=== PATIENT | male | born 1940 | race African-American/Black ===

== ENCOUNTER 2024-05-01 23:44 | Inpatient (IN) | payer MEDICARE ==
[~2024-05-01] VITALS: Ht 188 cm; Wt 83.0 kg
[2024-05-02] MEDS: MAG HYDROX/AL HYDROX/SIMETH 30 ML LIQUID UDC PO ONE (00:30)
[2024-05-02] MEDS: HYDROMORPHONE 1 MG/1 ML DISP.SYRIN IV ONE ×3 (00:30→04:47)
[2024-05-02] MEDS: NITROGLYCERIN OINT 1 GM PACKET TP ONE (00:30)
[2024-05-02] MEDS: ONDANSETRON 4 MG/2 ML VIAL IV ONE (00:30)
[2024-05-02] MEDS: DICYCLOMINE HCL LIQ 10 MG/5 ML UDC PO ONE (00:30)
[2024-05-02] MEDS: LIDOCAINE VISCUS 2% 15 ML UDC MM ONE (00:30)
[2024-05-02] MEDS: PANTOPRAZOLE SODIUM 40 MG VIAL IV ONE (00:30)
[2024-05-02] MEDS ORDERED: ONDANSETRON 4 MG/2 ML VIAL ONE (00:45)
[2024-05-02] MEDS ORDERED: PANTOPRAZOLE SODIUM 40 MG VIAL ONE (00:46)
[2024-05-02] MEDS ORDERED: HYDROMORPHONE 1 MG/1 ML DISP.SYRIN ONE ×3 (00:47→04:46)
[2024-05-02] MEDS ORDERED: DICYCLOMINE HCL LIQ 10 MG/5 ML UDC ONE (00:50)
[2024-05-02] MEDS ORDERED: LIDOCAINE VISCUS 2% 15 ML UDC ONE (00:50)
[2024-05-02] MEDS ORDERED: NITROGLYCERIN OINT 1 GM PACKET TP ONE (00:51)
[2024-05-02] MEDS ORDERED: MAG HYDROX/AL HYDROX/SIMETH 30 ML LIQUID UDC ONE (00:51)
[2024-05-02 00:56] LABS: BASOPHILS % (AUTO) 0.3 % (0.0-2.0); EOSINOPHILS % (AUTO) 0.4 % (0.0-7.0); HEMATOCRIT 39.4 % (36.7-47.1); HEMOGLOBIN 13.2 g/dL (12.5-16.3); LYMPHOCYTES # (AUTO) 0.5 K/uL (0.8-4.8); LYMPHOCYTES % (AUTO) 6.2 % (20.5-51.5); MEAN CORPUSCULAR HEMOGLOBIN 27.9 uug (23.8-33.4); MEAN CORPUSCULAR HGB CONC 33 g/dL (32.5-36.3); MEAN CORPUSCULAR VOLUME 83.5 fL (73.0-96.2); MONOCYTES # (AUTO) 0.7 K/uL (0.1-1.30); MONOCYTES % (AUTO) 8.2 % (0.0-11.0); NEUTROPHILS # (AUTO) 7.1 K/uL (1.8-8.9); NEUTROPHILS % (AUTO) 84.9 % (38.5-71.5); PLATELET COUNT (AUTO) 174 K/uL (152-348); RED BLOOD CELL COUNT(AUTO) 4.72 MIL/uL (4.06-5.63); RED CELL DISTRIBUTION WIDTH 14.2 % (12.1-16.2); WHITE BLOOD COUNT (AUTO) 8.3 K/uL (3.6-10.2)
[2024-05-02 01:06] LABS: DIFFERENTIAL COMMENT 1
[2024-05-02 01:21] LABS: ALANINE AMINOTRANSFERASE 31 U/L (16-63); ALBUMIN 3.1 g/dL (3.4-5.0); ALKALINE PHOSPHATASE 78 U/L (50-136); ASPARTATE AMINOTRANSFERASE 41 U/L (15-37); BILIRUBIN,DIRECT 0.1 mg/dL (0.0-0.2); BILIRUBIN,TOTAL 0.8 mg/dL (0.2-1.0); CALCIUM 8.5 mg/dL (8.5-10.1); CARBON DIOXIDE 23 mmol/L (21-32); CHLORIDE 103 mmol/L (98-107); CREATININE 1.7 mg/dL (0.6-1.3); GLUCOSE 129 mg/dL (74-106); LIPASE 113 U/L (16-77); POTASSIUM 5.6 mmol/L (3.5-5.1); SODIUM SERUM 139 mmol/L (136-145); TOTAL PROTEIN, SERUM 7.6 g/dL (6.4-8.2); UREA NITROGEN, BLOOD 34 mg/dL (7-18)
[2024-05-02] MEDS ORDERED: IOHEXOL 350 100 ML INFUS..BTL ONE (02:20)
[2024-05-02] MEDS ORDERED: SWABABLE VALVE TRANSFER SET EA MC ONE (02:20)
[2024-05-02] MEDS ORDERED: IV NORMAL SALINE 250 ML IV ONE (02:20)
[2024-05-02] MEDS ORDERED: MAGNESIUM HYDROXIDE 30 ML LIQUID UDC PO PRN (04:15)
[2024-05-02] MEDS ORDERED: ACETAMINOPHEN 325 MG TABLET PO PRN (04:15)
[2024-05-02] MEDS ORDERED: SODIUM ZIRCONIUM CYCLOSILICATE 10 GM POWD.PACK PO ONE (04:15)
[2024-05-02] MEDS ORDERED: ONDANSETRON 4 MG/2 ML VIAL IV PRN (04:15)
[2024-05-02] MEDS ORDERED: HEPARIN SODIUM,PORCINE 5,000 UNITS/ML VIAL ONE (04:22)
[2024-05-02] MEDS: HEPARIN SODIUM,PORCINE 5,000 UNITS/ML VIAL IV ONE ×2 (04:30)
[2024-05-02] MEDS ORDERED: HEPARIN/D5W DRIP 500 ML ONE (04:40)
[2024-05-02] MEDS: HEPARIN/D5W 25000 UNITS/500 ML BAG IV ONE (05:00)
[2024-05-02 06:11] LABS: BASOPHILS % (AUTO) 0.2 % (0.0-2.0); EOSINOPHILS % (AUTO) 0.3 % (0.0-7.0); HEMATOCRIT 33.6 % (36.7-47.1); HEMOGLOBIN 11.8 g/dL (12.5-16.3); LYMPHOCYTES # (AUTO) 0.5 K/uL (0.8-4.8); LYMPHOCYTES % (AUTO) 7.8 % (20.5-51.5); MEAN CORPUSCULAR HEMOGLOBIN 28.9 uug (23.8-33.4); MEAN CORPUSCULAR HGB CONC 35 g/dL (32.5-36.3); MEAN CORPUSCULAR VOLUME 82.5 fL (73.0-96.2); MONOCYTES # (AUTO) 0.8 K/uL (0.1-1.30); MONOCYTES % (AUTO) 11.1 % (0.0-11.0); NEUTROPHILS # (AUTO) 5.5 K/uL (1.8-8.9); NEUTROPHILS % (AUTO) 80.6 % (38.5-71.5); PLATELET COUNT (AUTO) 179 K/uL (152-348); RED BLOOD CELL COUNT(AUTO) 4.08 MIL/uL (4.06-5.63); RED CELL DISTRIBUTION WIDTH 14.3 % (12.1-16.2); WHITE BLOOD COUNT (AUTO) 6.9 K/uL (3.6-10.2)
[2024-05-02 06:17] LABS: DIFFERENTIAL COMMENT 1
[2024-05-02 06:35] LABS: CALCIUM 8.3 mg/dL (8.5-10.1); CARBON DIOXIDE 26 mmol/L (21-32); CHLORIDE 106 mmol/L (98-107); CREATININE 1.6 mg/dL (0.6-1.3); GLUCOSE 127 mg/dL (74-106); PHOSPHOROUS 4.1 mg/dL (2.5-4.9); POTASSIUM 4.6 mmol/L (3.5-5.1); SODIUM SERUM 140 mmol/L (136-145); UREA NITROGEN, BLOOD 34 mg/dL (7-18)
[2024-05-02] MEDS ORDERED: PANTOPRAZOLE SODIUM 40 MG VIAL IV SCH (09:00)
[2024-05-02] MEDS ORDERED: MORPHINE SULFATE 2 MG/1 ML DISP.SYRIN ONE (10:08)
[2024-05-02] MEDS: MORPHINE SULFATE 2 MG/1 ML DISP.SYRIN IVP ONE (10:12)
[2024-05-02] MEDS ORDERED: MORPHINE SULFATE 2 MG/1 ML DISP.SYRIN IVP PRN (11:00)
[2024-05-02 12:00] VITALS: BP 126/69; TEMP 96.8
[2024-05-02] MEDS ORDERED: ZOLP10TA2 PO (12:12)
[2024-05-02] MEDS ORDERED: ASPI81TA31 PO (12:12)
[2024-05-02] MEDS ORDERED: ALBU18HF2 IH (12:12)
[2024-05-02] MEDS ORDERED: CYCL10TA9 PO (12:12)
[2024-05-02] MEDS ORDERED: CHOL-35 PO (12:12)
[2024-05-02] MEDS ORDERED: ATOR10TA PO (12:12)
[2024-05-02] MEDS ORDERED: MELO-107 PO (12:12)
[2024-05-02] MEDS ORDERED: METH4TAB3 PO (12:12)
[2024-05-02] MEDS ORDERED: PANT40TA2 PO (12:12)
[2024-05-02 15:02] VITALS: BP 131/71; TEMP 98; O2SAT 94
[2024-05-02 19:05] VITALS: BP 131/69; TEMP 98.2; O2SAT 96
[2024-05-03] VITALS (10 sets, daily range): BP systolic 123–151; BP diastolic 72–81; TEMP 97.9–98.9; O2SAT 94–100
[2024-05-03] MEDS ORDERED: ALBUTEROL SULFATE 8 GM HFA.AER.AD IH PRN (08:45)
[2024-05-03] MEDS ORDERED: Medication Not On Formulary EA (Zolpidem Tartrate (Ambien) 10 MG) PO PRN (08:45)
[2024-05-03] MEDS ORDERED: PANTOPRAZOLE SODIUM 40 MG VIAL IV SCH (09:00)
[2024-05-03] MEDS: PANTOPRAZOLE SODIUM 40 MG TABLET.DR PO SCH (09:24)
[2024-05-03] MEDS: CHOLECALCIFEROL 1,000 UNIT TABLET PO SCH (09:24)
[2024-05-03] MEDS: CYCLOBENZAPRINE HCL 10 MG TABLET PO SCH (09:40)
[2024-05-03] MEDS: ASPIRIN 81 MG TAB.CHEW PO SCH (09:40)
[2024-05-03] MEDS ORDERED: APIXABAN 2.5 MG TABLET PO SCH (10:00)
[2024-05-03] MEDS: APIXABAN 5 MG TABLET PO SCH (10:43)
[2024-05-03] MEDS: ALBUTEROL SULFATE 2.5 MG/3 ML NEBU NEB PRN (14:50)
[2024-05-03 17:24] LABS: *BILIRUBIN,URIN NEGATIVE (NEGATIVE); *BLOOD, URINE 1+ (NEGATIVE); *CLARITY,URINE CLEAR (CLEAR); *COLOR,URINE YELLOW (YELLOW); *KETONES,URINE NEGATIVE (NEGATIVE); *PROTEIN,URINE 1+ (NEGATIVE); LEUKOCYTE ESTERASE ,URINE NEGATIVE (NEGATIVE); NITRITE, URINE NEGATIVE (NEGATIVE); PH,URINE 6.5 (5.0-8.0); UGLUCOSE NEGATIVE (NEGATIVE)
[2024-05-03 17:31] LABS: *CREATININE,URINE 92.6 mg/dL (30-125); *URINE TOTAL PROTEIN RANDOM 38.6 mg/dL (<150/24HR)
[2024-05-03] MEDS: GUAIFENESIN/DEXTROMETHORPHAN 5 ML UDC PO PRN (17:38)
[2024-05-03] MEDS: ATORVASTATIN 10 MG TABLET PO SCH (20:18)
[2024-05-03 20:58] LABS: BACTERIA,URINE FEW /HPF (NONE SEEN); SQUAMOUS EPITHELIAL CELL,UR FEW /HPF (NONE SEEN); WBC,URINE 0-3 /HPF (0-3)
[2024-05-03] MEDS: ZOLPIDEM 5 MG TABLET PO PRN (22:09)
[2024-05-04] VITALS: BP 135/67; TEMP 99.3; O2SAT 94
[2024-05-04 04:00] VITALS: BP 133/73; TEMP 98.8; O2SAT 96
[2024-05-04 06:59] LABS: BASOPHILS % (AUTO) 0.3 % (0.0-2.0); EOSINOPHILS % (AUTO) 0.6 % (0.0-7.0); HEMATOCRIT 34.9 % (36.7-47.1); LYMPHOCYTES # (AUTO) 0.9 K/uL (0.8-4.8); MEAN CORPUSCULAR HEMOGLOBIN 28.3 uug (23.8-33.4); MEAN CORPUSCULAR HGB CONC 35 g/dL (32.5-36.3); MEAN CORPUSCULAR VOLUME 81.9 fL (73.0-96.2); MONOCYTES # (AUTO) 0.6 K/uL (0.1-1.30); MONOCYTES % (AUTO) 13.6 % (0.0-11.0); NEUTROPHILS # (AUTO) 2.6 K/uL (1.8-8.9); NEUTROPHILS % (AUTO) 63.5 % (38.5-71.5); PLATELET COUNT (AUTO) 170 K/uL (152-348); RED BLOOD CELL COUNT(AUTO) 4.25 MIL/uL (4.06-5.63); RED CELL DISTRIBUTION WIDTH 13.7 % (12.1-16.2); WHITE BLOOD COUNT (AUTO) 4.2 K/uL (3.6-10.2)
[2024-05-04] MEDS ORDERED: PANTOPRAZOLE SODIUM 40 MG TABLET.DR PO SCH (07:00)
[2024-05-04 07:13] LABS: DIFFERENTIAL COMMENT 1
[2024-05-04 07:26] LABS: ALANINE AMINOTRANSFERASE 23 U/L (16-63); ALBUMIN 2.7 g/dL (3.4-5.0); ALKALINE PHOSPHATASE 79 U/L (50-136); ASPARTATE AMINOTRANSFERASE 13 U/L (15-37); BILIRUBIN,TOTAL 0.8 mg/dL (0.2-1.0); CALCIUM 8.4 mg/dL (8.5-10.1); CARBON DIOXIDE 24 mmol/L (21-32); CHLORIDE 99 mmol/L (98-107); CREATININE 1.4 mg/dL (0.6-1.3); GLUCOSE 105 mg/dL (74-106); MAGNESIUM 1.7 mg/dL (1.8-2.4); PHOSPHOROUS 3.9 mg/dL (2.5-4.9); SODIUM SERUM 133 mmol/L (136-145); TOTAL PROTEIN, SERUM 7.1 g/dL (6.4-8.2); UREA NITROGEN, BLOOD 25 mg/dL (7-18)
[2024-05-04 07:42] VITALS: BP 135/70; TEMP 97.6; O2SAT 99
[2024-05-04 08:19] LABS: CREATINE KINASE, TOTAL 33 U/L (39-308)
[2024-05-04] MEDS ORDERED: APIX5TAB4 PO (10:26)
[2024-05-04 11:38] VITALS: BP 113/77; TEMP 97; O2SAT 98
[2024-05-05 13:11] LABS: A/G RATIO 0.8 (0.7-1.7); ALBUMIN 2.7 g/dL (2.9-4.4); ALPHA-1-GLOBULIN 0.3 g/dL (0.0-0.4); ALPHA-2-GLOBULIN 0.8 g/dL (0.4-1.0); BETA GLOBULIN 0.8 g/dL (0.7-1.3); GAMMA GLOBULIN 1.4 g/dL (0.4-1.8); GLOBULIN, TOTAL 3.3 g/dL (2.2-3.9); M-SPIKE 0.5 g/dL (Not Observed); PTH, INTACT 9 pg/mL (15-65)
== END 2024-05-04 12:30 | disposition home or self-care (01) | DRG 176 ==
LOC: ER 23:47 → DOU3 05-02 11:06 → TELE-TD3 05-02 12:25 → TELE3 05-03 17:53
PROVIDERS: ADMIT Internal Medicine; ATTEND Internal Medicine
DX: I26.99 Other pulmonary embolism without acute cor pulmonale (principal); N17.9 Acute kidney failure, unspecified; J98.11 Atelectasis; C67.9 Malignant neoplasm of bladder, unspecified; E78.5 Hyperlipidemia, unspecified; G47.00 Insomnia, unspecified; Z85.528 Personal history of other malignant neoplasm of kidney; Z90.5 Acquired absence of kidney; N18.9 Chronic kidney disease, unspecified; Z86.73 Personal history of transient ischemic attack (TIA), and cerebral infarction without residual deficits; E87.5 Hyperkalemia; Z85.46 Personal history of malignant neoplasm of prostate; K21.9 Gastro-esophageal reflux disease without esophagitis; Z79.899 Other long term (current) drug therapy
CPT/HCPCS: 36415; 71275; 76770; 83690; 83735; 83970; 84100; 84155; 84165; 84300; 84484; 85025; 85730; 93307; 94640; 94664; 94760; G0378; J1171; J1644; J2270; J2405; J2470; Q9967